=== PATIENT | male | born 1955 | race Caucasian/White ===

== ENCOUNTER 2022-01-04 06:00 | Day surgery (SDC) | payer OTHER ==
[2021-12-28 14:42] LABS: BASOPHILS # (AUTO) 0.1 X10'3 (0-0.2); BASOPHILS % (AUTO) 1.6 % (0-1); EOSINOPHILS # (AUTO) 0.2 X10'3 (0-0.9); EOSINOPHILS % (AUTO) 4.6 % (0-6); LYMPHOCYTES # (AUTO) 1.6 X10'3 (1.1-4.8); LYMPHOCYTES % (AUTO) 30.5 % (21-51); MEAN CORPUSCULAR HEMOGLOBIN 27.4 PG (27.0-31.0); MEAN CORPUSCULAR HGB CONC 33.4 g/dL (33.0-36.5); MEAN CORPUSCULAR VOLUME 82.1 FL (78-98); MEAN PLATELET VOLUME 7.5 FL (7.4-10.4); MONOCYTES # (AUTO) 0.5 X10'3 (0-0.9); MONOCYTES % (AUTO) 8.7 % (2-12); NEUTROPHILS # (AUTO) 2.9 X10'3 (1.8-7.7); NEUTROPHILS % (AUTO) 54.6 % (42-75); PRE OP HEMATOCRIT 38.9 % (42.0-52.0); PRE OP PLATELET COUNT 212 X10'3 (140-440); RED BLOOD COUNT 4.73 X10'6 (4.70-6.10); RED CELL DISTRIBUTION WIDTH 15.3 % (11.5-14.5)
[2021-12-28 14:48] LABS: ALBUMIN 3.6 G/DL (3.4-5.0); ALBUMIN/GLOBULIN RATIO 1.1 (1.1-1.5); ALKALINE PHOSPHATASE 59 IU/L (46-116); BLOOD UREA NITROGEN 15 MG/DL (7-18); BUN/CREATININE RATIO 18.1 (5.4-32.0); CALCIUM 9.1 MG/DL (8.5-10.1); CHLORIDE 106 MMOL/L (99-107); CREATININE 0.83 MG/DL (0.60-1.10); PRE OP ALT 37 U/L (30-65); PRE OP ANION GAP 9 (8-16); PRE OP AST 19 U/L (10-37); PRE OP BILIRUB, TOTAL 0.6 MG/DL (0.0-1.0); PRE OP GLUCOSE 146 MG/DL (70-104); PRE OP POTASSIUM 3.8 MMOL/L (3.4-5.1); PRE OP SODIUM 142 MMOL/L (135-145); TOTAL CARBON DIOXIDE 26.9 MMOL/L (24-32); TOTAL PROTEIN 6.9 G/DL (6.4-8.2); eGFR > 90 ML/MIN
[~2022-01-04] VITALS: Ht 177.8 cm; Wt 140.9 kg
[~2022-01-04 06:00] MED LIST: DOCUMENT DATE & TIME OF BETA-BLOCKER PO ONE; FLUT16SP2 BOTHNARES; GABA300C PO; GABA600T13 PO; HYDR12.55 PO; LORA10TA7 PO; METO-539 PO; RIVA20TA PO; SIMV-42 PO; TURMERIC; VITAMIN C; VITAMIN D3; ZINC; ceFAZolin inj. 3,000 MG in normal saline 100ml IV soln 100 ML IV ONE; famotidine 20mg tablet PO ONE; ringers solution, lacted 1,000 ML IV SCH
[2022-01-04 06:10] VITALS: BP 148/84
[2022-01-04] MEDS ORDERED: BUPIVAcaine 0.5% inj/PF 30 ML ONE (06:40)
[2022-01-04] MEDS ORDERED: LIDOcaine 0.5% (5mg/ml) 50ml vial ONE (06:59)
[2022-01-04] MEDS ORDERED: morphine 2 MG/ML inj. syringe IV PRN (07:05)
[2022-01-04] MEDS ORDERED: ringers solution, lacted 1,000 ML IV SCH (07:05)
[2022-01-04] MEDS ORDERED: ondansetron/PF 4mg/2ml inj IV PRN (07:05)
[2022-01-04] MEDS ORDERED: hydrALAZINE 20mg/ml inj. IV PRN (07:05)
[2022-01-04] MEDS ORDERED: morphine 4 MG/ML inj SYRINge IV PRN (07:05)
[2022-01-04] MEDS ORDERED: labetalol 20mg/4ml (5mg/ml) syringe IV PRN (07:05)
[2022-01-04] MEDS ORDERED: fentaNYL/PF 50MCG/1 ML 2ML syringe IV PRN ×2 (07:05)
[2022-01-04] MEDS ORDERED: MIDAZolam 1mg/ml 10ml vial ONE (08:45)
[2022-01-04] MEDS ORDERED: fentaNYL/PF 50MCG/1 ML 2ML syringe ONE (08:45)
[2022-01-04] MEDS ORDERED: BUPIVAcaine 0.5% inj/PF 30 ml vial IJ ONE (09:04)
[2022-01-04 09:22] VITALS: BP 132/93
--- NOTE | 2022-01-04 09:22 | NUR ---
Received from OR via , accompanied by Anesthesiologist DR COHEN and report given by Anesthesiolgist. AWAKENS TO VOICE. VITALS STABLE. DRESSING DI. TRISTAN PAIN. FINGERS WARM AND PINK.
[2022-01-04 09:32] VITALS: BP 137/88
[2022-01-04 09:42] VITALS: BP 129/92
[2022-01-04 09:52] VITALS: BP 130/86
--- NOTE | 2022-01-04 10:02 | NUR ---
AWAKE AND ORIENTED. VITALS STABLE. DRESSING DI. TRISTAN PAIN. HOME WITH HIS AT THIS TIME.
== END 2022-01-04 10:02 | disposition home or self-care (01) ==
LOC: PAS 06:00
PROVIDERS: ATTEND Orthopaedic Surgery Hand Surgery
DX: G56.01 Carpal tunnel syndrome, right upper limb (principal); M65.321 Trigger finger, right index finger; M65.341 Trigger finger, right ring finger; D17.21 Benign lipomatous neoplasm of skin and subcutaneous tissue of right arm; G47.30 Sleep apnea, unspecified; F41.9 Anxiety disorder, unspecified; M19.90 Unspecified osteoarthritis, unspecified site; I10 Essential (primary) hypertension; I48.91 Unspecified atrial fibrillation; E66.01 Morbid (severe) obesity due to excess calories; Z68.41 Body mass index [BMI] 40.0-44.9, adult; Z86.718 Personal history of other venous thrombosis and embolism; Z86.19 Personal history of other infectious and parasitic diseases; Z20.822 Contact with and (suspected) exposure to COVID-19; Z79.899 Other long term (current) drug therapy; F12.90 Cannabis use, unspecified, uncomplicated; Z87.891 Personal history of nicotine dependence
CPT/HCPCS: 25071; 26055; 36415; 64721; 80053; 82948; 85025; 93005; A6222; J0690; J2250; J3010; J3490; J7030; J7120; S0020; U0003; U0005; Z7506; Z7512; A4215; A6449

== ENCOUNTER 2025-05-04 15:57 | Emergency (ER) | payer OTHER, MEDICARE, MEDICAID ==
[~2025-05-04] VITALS: Ht 177.8 cm; Wt 147.0 kg
[~2025-05-04 15:57] MED LIST changes: -DOCUMENT DATE & TIME OF BETA-BLOCKER PO ONE; +GABA-1405 PO; -GABA600T13 PO; -ceFAZolin inj. 3,000 MG in normal saline 100ml IV soln 100 ML IV ONE; -famotidine 20mg tablet PO ONE; -ringers solution, lacted 1,000 ML IV SCH
[2025-05-04 16:33] VITALS: BP 166/104; PULSE 73; RESP 18; TEMP 97.8; O2SAT 97
[2025-05-04 17:27] LABS: MEAN PLATELET VOLUME 7.2 FL (7.4-10.4); RED CELL DISTRIBUTION WIDTH 15.0 % (11.5-14.5)
[2025-05-04 17:31] LABS: LEUKOCYTE ESTERASE ,URINE NEGATIVE (Neg); NITRITES, URINE NEGATIVE (Neg); OCCULT BLOOD,URINE NEGATIVE (Neg)
[2025-05-04 17:33] LABS: UA COLLECTION TYPE NON-SPECIFIED
[2025-05-04 17:43] LABS: CREATININE 0.70 MG/DL (0.60-1.10); TOTAL CARBON DIOXIDE 29.6 MMOL/L (24-32); eCRCL 101 ML/MIN; eGFR > 90 ML/MIN
--- NOTE | 2025-05-04 18:20 | Physician Documentation ---
History of Present Illness Chief Complaint: Flank Pain Stated Complaint: BACK PAIN/LEG NUMBNESS HPI Patient is seen today with complaints of left-sided flank pain and abdominal pa in with history of large renal mass seen on CT or MRI of the abdomen a couple of years ago in 2022. Patient states his main concern with brought him in today is the worsening left-sided flank pain/abdominal pain. Medication Reconciliation Allergies: Coded Allergies: No Known Allergies (Unverified , 05/04/25) Scheduled Fluticasone Propionate (Flonase), 2 SPRAYS BOTHNARES DAILY, (Reported) Gabapentin (Gabapentin), 1 TAB PO QAM, (Reported) Gabapentin (Neurontin), 1 CAP PO QPM, (Reported) Hydrochlorothiazide (Hydrochlorothiazide), 1 TAB PO DAILY, (Reported) Metoprolol Succinate* (Toprol Xl*), 0.5 TAB PO HS, (Reported) Rivaroxaban (Xarelto), 1 TAB PO HS, (Reported) Simvastatin* (Zocor*), 1 TAB PO HS, (Reported) Scheduled PRN Loratadine (Loratadine), 1 TAB PO DAILY PRN for allergies, (Reported) Miscellaneous Medications [Turmeric], Unknown Dose, (Reported) [Vitamin C], Unknown Dose, (Reported) [Vitamin D3], Unknown Dose, (Reported) [Zinc], Unknown Dose, (Reported) Review of Systems Constitutional: Denies: chills, fever, weakness Eyes: Denies: pain, blurred vision ENT: Denies: ear pain, nose pain, throat pain, mouth pain Respiratory: Denies: cough, shortness of breath Cardiovascular: Denies: chest pain, palpitations Gastrointestinal: Denies: abdominal pain, nausea, vomiting Genitourinary: Denies: burning, dysuria Male Genitalia: Denies: penile discharge, testicular pain Neurological: Denies: headache, dizziness Musculoskeletal: Denies: pain, swelling Integumentary: Denies: rash, lesions Allergic/Immunologic: Denies: hives, itching Hematologic/Lymphatic: Denies: no symptoms reported Psychiatric: Denies: depression, anxiety Physical Exam Vital Signs: Temperature: 97.8, Source: Oral, Heart Rate: 73, Respiratory Rate: 18, BP: 166/104, Pulse Oximetry: 97, Weight: 147.000 Physical Exam General: Awake and Alert, no acute distress. HEENT: Conjunctiva pink, Sclera clear, Mucus Membranes moist. Neck: Supple without masses and tenderness. Resp: Unlabored. Lungs clear to auscultation bilaterally. Heart: Regular Rate and rhythm, normal S1 and S2 without murmur, rub or gallop. Abdomen: Patient has no CVA tenderness on either side, patient has mild left upper quadrant abdominal tenderness. No significant abdominal distention or masses appreciable, no rebound tenderness and no guarding. Extremities: No cyanosis,clubbing or edema. Skin: Warm and Dry. Progress Results/Orders Results/Orders Vital Signs 05/04/25 16:33 Temp 97.8 Pulse 73 Resp 18 B/P (MAP) 166/104 Pulse Ox 97 Laboratory Tests Test 05/04/25 17:12 White Blood Count 6.1 Red Blood Count 4.85 Hemoglobin 13.9 L Hematocrit 40.3 L Mean Corpuscular Volume 83.0 Mean Corpuscular Hemoglobin 28.7 Mean Corpuscular Hemoglobin Concent 34.6 Red Cell Distribution Width 15.0 H Platelet Count 190 Mean Platelet Volume 7.2 L Neutrophils (%) (Auto) 50.4 Lymphocytes (%) (Auto) 33.8 Monocytes (%) (Auto) 10.8 Eosinophils (%) (Auto) 4.0 Basophils (%) (Auto) 1.0 Neutrophils # (Auto) 3.1 Lymphocytes # (Auto) 2.1 Monocytes # (Auto) 0.7 Eosinophils # (Auto) 0.2 Basophils # (Auto) 0.1 CBC Comment Sodium Level 139 Potassium Level 4.0 Chloride Level 102 Carbon Dioxide Level 29.6 Anion Gap 7 L Blood Urea Nitrogen 10 Creatinine 0.70 Estimated GFR/1.73 m2 > 90 BUN/Creatinine Ratio 14.3 Glucose Level 111 H Calcium Level 9.2 Total Bilirubin 0.6 Aspartate Amino Transf (AST/SGOT) 17 Alanine Aminotransferase (ALT/SGPT) 27 Alkaline Phosphatase 61 Total Protein 7.0 Albumin 3.9 Globulin 3.1 Albumin/Globulin Ratio 1.3 Chemistry Comments Medical Decision Making Findings Patient is seen today with complaints of left-sided flank pain and abdominal pain with history of large renal mass seen on CT or MRI of the abdomen a couple of years ago in 2022. Patient states his main concern with brought him in today is the worsening left-sided flank pain/abdominal pain. Patient unfortunately left prior to CT scan study being performed stating [facility] and [facility]. Patient eloped. Patient will return to ED with any worsening, concerning or changing symptoms. Departure Disposition: 07 LEFT AWOL/ELOPED Impression: Primary Impression: Abdominal pain Qualified Codes: R10.12 - Left upper quadrant pain Condition: Stable Additional Instructions: Patient unfortunately left prior to CT scan study being performed stating [facility] and [facility] and [facility]. Patient eloped. Patient will return to ED with any worsening, concerning or changing symptoms. Referrals: NO PRIMARY CARE PROVIDER (PCP) Signature Scribe Signature: No scribe Attestation: No scribe HOSEA REED PAC May 04, 2025 18:20
[2025-05-04] MEDS ORDERED: iohexol 300mg/ml 100ml inj. ONE (18:35)
== END 2025-05-04 20:53 | disposition left against medical advice (07) ==
LOC: ER 15:57
DX: R10.12 Left upper quadrant pain (principal); Z53.21 Procedure and treatment not carried out due to patient leaving prior to being seen by health care provider
CPT/HCPCS: 36415; 80053; 81003; 85025; 99283; Q9967